=== PATIENT | male | born 2005 | race Two or more races ===

== ENCOUNTER 2024-10-02 03:27 | Emergency (ER) | payer OTHER ==
[~2024-10-02] VITALS: Ht 170.2 cm; Wt 65.9 kg
--- NOTE | 2024-10-02 03:43 | ED.PDOC ---
SOB-HPI HPI Comments Pt brought in by father for multiple complaints. Pt describes reason for being brought to the ED is d/t abdominal pain. Prior to coming into Triage, pt was having a BM, described as normal. Denies N/V. Pt then goes on to complain of chest discomfort upon arrival to ED. Pt describes this chest discomfort as dull, non-radiating, intermittent, and "only happened twice." Denies dizziness, blurred vision, SOB. Prior to coming into Triage, pts father states, "Pt is diagnosed schizophrenic, and I brought him in to be evaluated for a heart murmur, but he is usually treated at [place]." Father poor historian, unable to provide current medications for pt. PT A&O x4, NKDA, VSS. No s/s of distress noted, pt breathing even and unlabored on room air. Denies active abdominal pain at this time denies active chest pain at this time. Patient reports history of schizophrenia currently controlled with medications. Time Seen by MD: 03:33 Reviewed notes: Nurses Notes, Medications, Allergies Information Source: Patient Past Medical History PAST MEDICAL HISTORY: Anxiety Past Medical History (Other): Schizophrenia Family History Family History: Unknown Social History Smoker: Non-Smoker Alcohol: Denies ETOH Use Drugs: Denies Drug Use Constitutional: denies: chills, diaphoresis, fatigue, fever, malaise, sweats, weakness, others EENTM: denies: blurred vision, double vision, ear bleeding, ear discharge, ear drainage, ear pain, ear ringing, eye pain, eye redness, hearing loss, mouth pain, mouth swelling, nasal discharge, nose bleeding, nose congestion, nose pain, photophobia, tearing, throat pain, throat swelling, voice changes, others Respiratory: denies: cough, hemoptysis, orthopnea, SOB at rest, shortness of breath, SOB with excertion, stridor, wheezing, others Cardiovascular: reports: chest pain; denies: dizzy spells, diaphoresis, Dyspnea on exertion, edema, irregular heart beat, left arm pain, lightheadedness, palpitations, PND, syncope, others Gastrointestinal: denies: abdomen distended, abdominal pain, blood streaked bowels, constipated, diarrhea, dysphagia, difficulty swallowing, hematemesis, melena, nausea, poor appetite, poor fluid intake, rectal bleeding, rectal pain, vomiting, others Neurological: denies: dizziness, fainting, headache, left sided numbness, left sided weakness, numbness, paresthesia, pre-existing deficit, right sided numbness, right sided weakness, seizure, speech problems, tingling, tremors, weakness, others Musculoskeletal: denies: back pain, gout, joint pain, joint swelling, muscle pain, muscle stiffness, neck pain, others Integumetry: denies: bruises, change in color, change in hair/nails, dryness, laceration, lesions, lumps, rash, wounds, others Allergic/Immunocompromised: denies: Difficulty Healing, Frequent Infections, Hives, Itching, others Hematologic/Lymphatic: denies: anemia, blood clots, easy bleeding, easy bruising, swollen glands, others Endocrine: denies: excessive hunger, excessive sweating, excessive thirst, excessive urination, flushing, intolerance to cold, intolerance to heat, unexplained weight gain, unexplained weight loss, others Psychiatric: denies: anxiety, bipolar disorder, depression, hopeless, panic disorder, schizophrenia, sleepless, suicidal, others Physical Exam General Appearance: No Apparent Distress, Normal HEENT: Normal ENT Inspection, Pharynx Normal, TMs Normal Neck: Full Range of Motion, Non-Tender Respiratory: Chest Non-Tender, Lungs Clear, No Accessory Muscle Use, No Respiratory Distress, Normal Breath Sounds Cardiovascular: No Edema, No JVD, No Murmur, No Gallop, Normal Peripheral Pulses, Regular Rate/Rhythm Breast Exam: Deferred Gastrointestinal: No Organomegaly, Non Tender, No Pulsatile Mass, Normal Bowel Sounds, Soft Genitalia: Deferred Pelvic: Deferred Rectal: Deferred Extremities: Normal capillary refill, Normal inspection, Normal range of motion, Non-tender, No pedal edema Musculoskeletal : Apperance: Normal Neurologic: Alert, marionette performer II-XII nml as Tested, No Motor Deficits, Normal Affect, Normal Mood, No Sensory Deficits Cerebellar Function: Normal Reflexes: Normal Skin: Dry, Normal Color, Warm Lymphatic: No Adenopathy Was a procedure done? Was a procedure done?: No Differential Dx Differential Diagnosis: Asthma, Bronchitis, Pneumonia, Pneumothorax X-Ray, Labs, Meds, VS Vital Signs Date Time Temp Pulse Resp B/P (MAP) Pulse Ox O2 Delivery O2 Flow Rate FiO2 10/02/24 03:54 109 10/02/24 03:46 98.2 116 18 137/87 (994) 94 98.2 Current Medications Medications (Trade) Dose Ordered Sig/Simi Route Start Time Stop Time Status Last Admin Al Hydrox/Mg Hydrox/Simethicone (Maalox Plus) 30 ml ONCE ONCE PO 10/02/24 05:00 10/02/24 05:01 DC 10/02/24 05:07 Lidocaine HCl (Xylocaine 2% Viscous) 5 ml ONCE ONCE MT 10/02/24 05:00 10/02/24 05:01 DC 10/02/24 05:07 Belladonna Alkaloids/ Phenobarbital ( Elixir) 5 ml ONCE ONCE PO 10/02/24 05:00 10/02/24 05:01 DC 10/02/24 05:07 X-Ray, Labs, Meds, VS Comment EKG SINUS TACH AT 99 HEART RATE NO ECTOPY. X-RAY SHOWS NO ACUTE OR CHRONIC CARDIOPULMONARY CONCERNS. WE WILL TRIAL GI COCKTAIL. FATHER REPORTS PATIENT HAD 4 SLICES OF PIZZA AFTER TAKING HIS MEDICATIONS STATES SYMPTOMS STARTED JUST AFTER. GI COCKTAIL REPORTS IMPROVEMENT IN SYMPTOMS REQUESTING DISCHARGE AT THIS TIME. WE WILL SCRIPT PROTONIX 40 MG ONCE DAILY TIMES 14 DAYS. ADVISED TO AVOID SPICY FOOD, AND LARGE MEALS. MEDICATIONS PRESCRIBED SIDE EFFECTS DISCUSSED. FOLLOW UP WITH YOUR PCP IN 2-3 DAYS SOONER NECESSARY. ER RETURN PRECAUTIONS GIVEN PATIENT INDICATES UNDERSTANDING AGREES WITH DISCHARGE PLAN OF CARE. Time of 1ST Reevaluation: 03:45 Reevaluation 1ST: Unchanged Time of 2ND Reevaluation: 05:13 Reevaluation 2ND: Improved Patient Education/Counseling: Diagnosis, Treatment, Prognosis, Need For Follow Up Family Education/Counseling: Diagnosis, Treatment, Prognosis, Need For Follow Up Departure 1 Departure Time of Disposition: 05:13 Impression: Primary Impression: GERD (gastroesophageal reflux disease) Qualified Codes: K21.9 - Gastro-esophageal reflux disease without esophagitis Disposition: 01 HOME / SELF CARE / HOMELESS Condition: Stable e-Prescriptions Pantoprazole Sodium Sesquihydr (Protonix) 40 Mg Tab 40 MG PO DAILY for 14 Days, #14 TAB Prov: RENAN SAN MARIA LUISA 10/02/24 Discharged With: Relative (Father) Critical Care Note Critical Care Time?: No Stability Stability form required: No Heart Score Heart Score: Heart Score Response (Comments) Value History N/A 0 EKG Normal 0 Age <45 0 Risk Factors No known risk factors 0 Troponin N/A 0 Total 0 RENAN SAN Oct 02, 2024 03:43
--- NOTE | 2024-10-02 04:29 | DVH ---
Examination: CXR2 CLINICAL INDICATION: Chest pain. COMPARISON: None. TECHNIQUE: Two views of the chest were obtained. FINDINGS: Lungs are clear and well expanded with no pulmonary infiltrate or pleural effusion. There is no pneumothorax. The cardiomediastinal silhouette is within normal limits. No acute osseous abnormality is seen. IMPRESSION: No acute cardiopulmonary disease is seen. Electronically Signed 10/02/2024 04:28 Eulogio Plata
[2024-10-02 05:07] VITALS: BP 136/72; PULSE 88; RESP 16; TEMP 98; O2SAT 96
[2024-10-02] MEDS: DONNATAL 5ml ORAL Elix (BELLADONNA ALK-PHENOBARB) PO ONE (05:07)
[2024-10-02] MEDS: MAALOX PLUS or MAALOX 30 ML PO ONE (05:07)
[2024-10-02] MEDS: LIDOCAINE VISCOUS 2% 15ML UD MT ONE (05:07)
[2024-10-02] MEDS ORDERED: PANT40TA2 PO (05:16)
--- NOTE | 2024-10-04 14:32 | ECG ---
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
== END 2024-10-02 05:24 | disposition home or self-care (01) ==
LOC: ER 03:27
DX: K21.9 Gastro-esophageal reflux disease without esophagitis (principal); F41.9 Anxiety disorder, unspecified; F20.9 Schizophrenia, unspecified
CPT/HCPCS: 71046; 93005